=== PATIENT | female | born 1995 | race Caucasian/White ===

== ENCOUNTER 2017-11-29 05:57 | Inpatient (IN) ==
[2017-11-29] MEDS ORDERED: Metoclopramide 10 MG/2 ML VIAL IVP PRN (05:59)
[2017-11-29] MEDS ORDERED: *HR* Nalbuphine 10 MG/ML AMPUL IVP PRN (05:59)
[2017-11-29] MEDS ORDERED: Famotidine 20 MG/2 ML VIAL IVP PRN (05:59)
[2017-11-29] MEDS ORDERED: Ondansetron 4 MG/2 ML VIAL IVP PRN ×2 (05:59→10:59)
[2017-11-29] MEDS ORDERED: Naloxone 0.4 MG/ML INJ IVP PRN ×2 (05:59→10:59)
[2017-11-29] MEDS ORDERED: Oxytocin 20 units/ LR 1000 mL 20 UNIT/1,000 ML BAG IVC SCH ×2 (06:00→15:22)
[2017-11-29] MEDS: Ringers Solution, Lactated 1,000 ML IVC SCH ×2 (06:25→15:23)
[2017-11-29] MEDS ORDERED: Vancomycin 1,000 MG in D5% in Water 250 ML IVPB SCH (06:30)
[2017-11-29 06:38] LABS: Basophils % 0.2 %; Eosinophils # 0.1 K/mcL (0.0-0.6); Eosinophils % 0.8 %; Hematocrit 39.8 % (35.3-44.9); Hemoglobin 13.9 g/dL (11.5-15.4); Immature Granulocytes % 0.5 % (0-4); Lymphocytes # 2.5 K/mcL (0.6-4.6); Lymphocytes % 24.2 %; Mean Corpuscular HGB Conc 34.9 g/dL (31.6-35.5); Mean Corpuscular Hemoglobin 30.5 pg (28.0-33.3); Mean Corpuscular Volume 87.5 fL (83.0-100.0); Mean Platelet Volume 10.9 fL (9.4-12.4); Monocytes # 0.6 K/mcL (0.0-1.3); Monocytes % 5.7 %; Neutrophils # 7.1 K/mcL (1.6-8.9); Platelet Count 170 K/mcL (140-400); Red Blood Count 4.55 M/mcL (3.82-4.97); Red Cell Distribution Width 13.1 % (11.5-14.5); Segmented Neutrophils % 68.6 %
[2017-11-29 06:59] LABS: Amphetamine Screen,Urine Negative ng/mL (Cutoff=1000); Barbiturate Screen,Urine Negative ng/mL (Cutoff=200); Benzodiazepines Screen,Urine Negative ng/mL (Cutoff=200); Cannabinoid Screen,Urine Negative ng/mL (Cutoff = 50); Cocaine Screen,Urine Negative ng/mL (Cutoff= 300); Opiate Screen,Urine Negative ng/mL (Cutoff=300); Phencyclidine Screen,Urine Negative ng/mL (Cutoff=25)
--- NOTE | 2017-11-29 07:31 | OB/GYN History & Physical ---
Date of Encounter: 11/29/17 Time of Encounter: 07:15 Assessment and Plan (1) Post-term , 40-42 weeks of gestation Current visit: Yes Status: Acute Admit for IOL Routine labor management. GBS positive- Vancomycin started Pitocin started, dilated 3-4cm Hx of HSV, on valtrex, patient denies lesions or tingling. Anticipate vaginal delivery. History of Present Illness Chief complaint: Induction of Labor HPI: Ms. Grayson is a 22 year old female at 40 weeks 5 days, that presents to labor and delivery for IOL. She states positive movement. Admits intermittent contractions for the past few weeks, denies leaking of fluid. History of HSV, currently on Valtrex, denies any lesions or burning/tingling. Labs: Blood type A- GBS positive Rubella antibody positive Varicella antibody positive Hep B nonreactive HIV nonreactive Treponema negative Past Med Surg Social Fam HX - Past Medical History Attestation: Yes The following information was validated with the patient. Source: nursing notes reviewed Medical history: other (HSV) Psychiatric history: no psych history - Social History Smoking Status: Never smoker Smokeless Tobacco Status: No Alcohol use: none Drug use: none - Family History Mother Hx Family Cardiac Disorders: Yes (HTN) Hx Family Endocrine Disorder: Yes (DM) Obstetrical History - Pregnancies : 2 Para: 1 Term: 1 : 0 Ab's: 0 Livin Medications and Allergies Vit/Iron Fumarate/FA [ Tablet] 1 tab PO DAILY 11/29/17 [History ] valACYclovir [Valtrex] 1,000 mg PO DAILY 11/29/17 [History] 3 Allergy/AdvReac Type Severity Reaction Status Date / Time Penicillins Allergy Hives Verified 11/29/17 05:59 Review of System OB All systems PM: reviewed and no additional remarkable complaints except as stated Exam - Constitutional Constitutional: well developed, well nourished, no acute distress - HEENT HEENT: Normocephaly, Mucus Membranes Moist - Neck Neck exam: full ROM, normal inspection - Lungs Respiratory exam: CTAB - Cardiovascular Cardiovascular exam: RRR, +S1, +S2 - Abdomen Abdomen: Present: bowel sounds normal, gravid, non tender - Extremities Extremities exam: normal inspection Results Result Diagrams: 11/29/17 06:32 All other labs normal. - VTE Reasons for not Prescribing Prophylaxis: Treatment not Indicated - Low risk for VTE
--- NOTE | 2017-11-29 08:30 | Anesthesia Evaluation PreOp ---
Date of Encounter: 11/29/17 Time of Encounter: 08:20 - Past History Planned Operation: ODALYS Cardiac History: Denies any Significant Hx Pulmonary History: Denies Any Significant HX TELEVISION NEWSCAST DIRECTOR History: Denies Any Significant HX Other Medical History: Other (HSV, on valtrex) Anesthesia History: No Prior Anesthetic Complications, Past Anesthesia (T&A, previous epidural) : Yes Alcohol Use: none Drug use: none Medications and Allergies Vit/Iron Fumarate/FA [ Tablet] 1 tab PO DAILY 11/29/17 [History ] valACYclovir [Valtrex] 1,000 mg PO DAILY 11/29/17 [History] 3 Allergy/AdvReac Type Severity Reaction Status Date / Time Penicillins Allergy Hives Verified 11/29/17 05:59 - Meds/Allergy Pre-op Review Medications Reviewed: Yes Allergies Reviewed: Yes Beta Blockers on Current Med List: No Anesthesia Results - Labs 11/29/17 06:32 Anesthesia Exam BP 132/83 P 88 R 16 T 98.4 Height: 5'8" Weight: 96.9kg NPO (# of Hours): 4 Pain Scale: 3 Pain Scale Used: Numeric (1 - 10) - HEENT Pupil (Motor): Pupils equal Mallampati: II Teeth: Normal Oral Opening: Greater than 3 - TELEVISION NEWSCAST DIRECTOR LOC: Oriented TELEVISION NEWSCAST DIRECTOR Motor: Normal RUE, Normal LUE, Normal RLE, Normal LLE, Normal Face TELEVISION NEWSCAST DIRECTOR Sensory: Normal: RUE, LUE, RLE, LLE, Face - Cardiac Rhythm: Regular Murmur: None JVD: No Carotid Bruit: No - Pulmonary Breath Sounds: bilateral Clear Respiratory Effort: Symmetrical Anesthesia Assess/Plan ASA Score: 2 Modified [place] Scale for Level of Consciousness: Cooperative, oriented, and tranquil Anesthetic Plan: Regional Autologous Blood: No Monitoring Plan: Standard Monitors Recovery Plan: Other
--- NOTE | 2017-11-29 10:12 | OB/GYN History & Physical ---
Date of Encounter: 11/29/17 Time of Encounter: 10:10 Assessment and Plan (1) Hx of [place] positive for herpes simplex virus Current visit: Yes Status: Acute Patient on Valtrex prophylaxis since 35 weeks gestation NO outbreaks visualized (2) Post-term , 40-42 weeks of gestation Current visit: Yes Status: Acute Scheduled IOL Pitocin per protocol may have Nubain or Epidural if desiresk Dr. Monsivais aware (3) Group B Streptococcus carrier state affecting Current visit: Yes Status: Acute Vancomycin per protocol for GBS due to PCN allergy. History of Present Illness Chief complaint: Schedule IOL at 40w5d HPI: Ms. Grayson is a 22 year old female Past Med Surg Social Fam HX - Past Medical History Source: patient Medical history: other (HSV) Psychiatric history: no psych history - Past Surgical History Surgical History: no surgical history - Social History Smoking Status: Never smoker Smokeless Tobacco Status: No Alcohol use: none Drug use: none Occupational status: employed Current living situation: Home - Independent Activity Level: Independent ambulation Recent Out of Country Travel Within the Last 8 Weeks: No Exposure or Possible Exposure to Illness During Travel: No - Family History Mother Hx Family Cardiac Disorders: Yes (HTN) Hx Family Endocrine Disorder: Yes (DM) Obstetrical History - Pregnancies : 2 Para: 1 Term: 1 : 0 Ab's: 0 Livin Medications and Allergies Vit/Iron Fumarate/FA [ Tablet] 1 tab PO DAILY 11/29/17 [History ] valACYclovir [Valtrex] 1,000 mg PO DAILY 11/29/17 [History] 3 Allergy/AdvReac Type Severity Reaction Status Date / Time Penicillins Allergy Hives Verified 11/29/17 05:59 Review of System OB - Constitutional Constitutional ROS IM: no chills, no fever(s), no headache(s) - Cardiovascular Cardiovascular: no chest pain, no palpitations, no syncope - Respiratory Respiratory: no cough - Gastrointestinal Gastrointestinal: no abdominal pain, no constipation, no diarrhea, no heartburn , no nausea, no vomiting - Genitourinary Genitourinary: no abnormal vaginal bleeding, no dysuria, no flank pain, no urinary frequency, no urinary urgency, no vaginal discharge, no vaginal odor, no vaginal pruritis Exam - Constitutional Constitutional: well developed, well nourished, no acute distress, average body habitus - HEENT HEENT: Normocephaly, Mucus Membranes Moist - Neck Neck exam: full ROM, supple - Lungs Respiratory exam: CTAB - Cardiovascular Cardiovascular exam: RRR, +S1, +S2 - Abdomen Abdomen: Present: bowel sounds normal, gravid, non tender - Extremities Extremities exam: full ROM, normal inspection Deep Tendon Reflex Grade: 2+ Normal - Cervix Dilation: 3 Effacement: 80 Station: -1 - Uterus Uterus exam: Present: normal size, normal contour - Anus/Rectum Anus/Rectum: Present: normal perianal skin - Comments Comments: FHR 135 bpm moderate amount of variability +15x15 accesl no decels noted. Cat 1 tracing. Contractions 3-4 min apart Results Result Diagrams: 11/29/17 06:32 All other labs normal. - VTE Reasons for not Prescribing Prophylaxis: Treatment not Indicated - Low risk for VTE
[2017-11-29] MEDS ORDERED: EPHEDrine 50 MG/ML VIAL IVP PRN (10:59)
[2017-11-29] MEDS ORDERED: *HR* FentaNYL (PF) 100 MCG/2 ML VIAL EP ONE (10:59)
[2017-11-29] MEDS ORDERED: Bupivacaine-MPF 0.25% 10 ML VIAL EP ONE (10:59)
[2017-11-29] MEDS ORDERED: Epidural Premix (fent/bupiv) 110 ML EP SCH (11:00)
[2017-11-29] MEDS ORDERED: Epidural Premix (fent/bupiv) 110 ML EP ONE (11:01)
[2017-11-29] MEDS ORDERED: Bupivacaine-MPF 0.25% 10 ML VIAL ONE (11:02)
[2017-11-29] MEDS ORDERED: *HR* FentaNYL (PF) 100 MCG/2 ML VIAL ONE (11:02)
--- NOTE | 2017-11-29 11:36 | Anesthesia Procedures ---
Date of Encounter: 11/29/17 Time of Encounter: 11:06 Procedures: Anesthesia - Epidural/Spinal Patient ID/Chart reviewed: Yes Patient examined: Yes OB Eval: Gestational age: 40.5 OB Eval: : 2 OB Eval: Hx Para: 1 OB Eval: Dilated at (cm): 5 OB Eval: Contractions: Non-stressed pattern Consent Obtained: Yes Supplemental Oxygen: None/Room Air Site Prep: Aseptic Technique, Sterile prep and drape, Povidone-Iodine 1% Patient position: upright Local Anesthetic: Lidocaine 1% Amount of Local Anesthetic used: 3 Touhy Needle Gauge: 18 Touhy Needle Depth (cm): 6 Catheter Depth at Skin (cm): 14 Test Dose (1.5% Lido + Epi): Volume given (mls): 3 Test Dose Result: Negative Loading Dose: 0.25% Marcaine (mls): 10 Loading Dose: Fentanyl (mcg): 100 Loading Dose Administered: Thru Catheter Infusion Med: 0.125% Bupivacaine w/ 2 mcg/ml Fentanyl Infusion Rate (mls/hr): 15 Interspace Used: L3-L4 Loss of Resistance (CARROL): Yes Blood: No CSF: No Paresthesia: No Procedure: ODALYS placed 1st pass without any immediate noted complication. VSS and FHT stable throughout. Vitals + FHT's: 1106 BP 132/72 P 107 R `8 1130 BP 115/61 P 87 R 16 FHT 140s
--- NOTE | 2017-11-29 12:56 | OB Labor Progress Note ---
Date of Encounter: 11/29/17 Time of Encounter: 12:54 Labor Progress Note - Subjective Subjective: Patient doing well. Patient has epidural in place and macias catheter is draining clear yellow urine. Patient does report feeling pressure. - Cervix Cervix: 9/90/0 - Heart Tones Heart Tones: 130 bpm moderate variability +15x15 accels no decels noted. CAt. 1 tracing. - [place]: 1.5-5 min apart - Interventions Interventions: SVE, AROM moderate amount of clear fluid. Patient tolerated well. - Plan Plan: Continue labor management anticipate
--- NOTE | 2017-11-29 14:02 | OB/GYN Procedure Note ---
Delivery - Delivery Date: 11/29/17 Provider: Caterina Flores Intrapartum events: none Delivery induction: AROM, oxytocin Delivery monitor: external FHT, external uterine Anesthesia: epidural Estimated Blood Loss: 200 - (s) A Delivery Date: 11/29/17 Delivery Time: 13:34 Presentation: vertex Position: MELANIA Route of delivery: Gender: Female Viability: Viable Pounds: 8 Ounces: 15 at 1 minute: 8 at 5 mins: 9 Shoulder Dystocia: not encountered Specimens collected: cord blood Placenta: spontaneous, uterine exploration Cord: nuchal cord (X1), delivered through nuchal - Repair Episiotomy: none Laceration Description: None - Complications Delivery complications: none - Disposition Mom disposition: stable in LDR disposition: stable in LDR - Comments Comments: Called to LDR, patient reports feeling pressure. Patient is complete and +2 station. Patient placed in stirrups and prepped for vaginal delivery. Under maternal effort patient spontaneously delivered a viable female over an intact perineum. A nuchal cord was noted that delivered through. No meconium or shoulder dystocia was noted. was placed on maternal abdomen. Cord was clamped and cut after pulsations ceased. Placenta delivered spontaneously and intact. Pericare provided, all counts correct. Both mother and infant stable in LDR for recovery.
[2017-11-29] MEDS ORDERED: Measles/Mumps/Rubella Vacc 0.5 ML VIAL SQ PRN (15:22)
[2017-11-29] MEDS ORDERED: Rho Immune Globulin 1,500 UNIT SYRINGE IM PRN (15:22)
[2017-11-29] MEDS ORDERED: Acetaminophen 325 MG TABLET PO PRN (15:22)
[2017-11-29] MEDS: Ibuprofen 600 MG TABLET PO PRN (16:54)
[2017-11-30] MEDS: Ibuprofen 600 MG TABLET PO PRN (05:15)
[2017-11-30 07:45] VITALS: BP 118/76
--- NOTE | 2017-11-30 08:59 | Discharge Summary ---
Date of Encounter: 11/30/17 Time of Encounter: 08:54 - Discharge Diagnosis (1) Vaginal delivery Priority: Primary Status: Acute Comments: Doing well. Voiding and ambulating without difficulty, tolerating regular diet well. Lochia light and without clots. Mild abdominal cramping, pain well controlled with Ibuprofen. in crib at bedside. Pumping breasts, states has breast pump at home. Desires to go home today. - Discharge Medications Prescriptions: Ibuprofen [Motrin] 600 mg PO Q6HR PRN #30 tablet PRN Reason: Cramping Docusate [Colace] 100 mg PO BID #20 capsule Home Medications: Acetaminophen [Tylenol] 650 mg PO Q6HR PRN tablet 11/30/17 [Rx] Docusate [Colace] 100 mg PO BID #20 capsule 11/30/17 [Rx] Ibuprofen [Motrin] 600 mg PO Q6HR PRN #30 tablet 11/30/17 [Rx] Vit/FA 1 each PO DAILY tablet 11/30/17 [Rx] Allergies/Adverse Reactions: 3 Allergy/AdvReac Type Severity Reaction Status Date / Time Penicillins Allergy Hives Verified 11/29/17 05:59 Data Procedures and tests throughout hospitalization: Laboratory Tests 11/29/17 11/29/17 11/29/17 06:32 06:32 14:05 WBC 10.4 RBC 4.55 Hgb 13.9 Hct 39.8 MCV 87.5 MCH 30.5 MCHC 34.9 RDW 13.1 Plt Count 170 MPV 10.9 Immature Gran % 0.5 Seg Neutrophils % 68.6 Lymphocytes % 24.2 Monocytes % 5.7 Eosinophils % 0.8 Basophils % 0.2 Neutrophils # 7.1 Lymphocytes # 2.5 Monocytes # 0.6 Eosinophils # 0.1 Basophils # 0.0 Urine Opiates Screen Negative Ur Barbiturates Screen Negative Ur Phencyclidine Scrn Negative Ur Amphetamines Screen Negative U Benzodiazepines Scrn Negative Urine Cocaine Screen Negative U Marijuana (THC) Screen Negative Screen NEGATIVE Baby's Blood Type A RH POSITIVE Mother's Blood Type A RH NEGATIVE Rhogam Indicated YES Rhogam Req for Mother 1 Labs on day of discharge: Labs from last 24 hours 11/29/17 14:05 Screen NEGATIVE Baby's Blood Type A RH POSITIVE Mother's Blood Type A RH NEGATIVE Rhogam Indicated YES Rhogam Req for Mother 1 Date of admission: 11/29/17 05:57 Primary care physician: Bjorn Lopez MD Consults: 11/29/17 15:22 Consult to Art Dealer [CONS] Routine Comment: Vaginal delivery, consult needed Discharging clinician: Aury Rivas Anticipated date of discharge: 11/30/17 - Patient Status Disposition: Home, Self-Care Condition: Good Functional capacity at discharge: independent ambulation Overall status at discharge: patient is progressing back to baseline - Discharge Instructions Follow Up With: Bjorn Lopez MD [Primary Care Provider] - - Diet and Activity Activity: resume usual activities as tolerated Diet: advance to your usual diet Hospital Course Reason for admission: induction of labor, IUP at term Delivery: Episiotomy: none Laceration: none Other procedures: none complications: none Discharge diagnosis: IUP at term delivered [place] baby: female Hospital course: Unremarkable Time spent discussing smoking cessation with patient: 3 to 10 minutes Time Attestation: Total time spent providing and/or coordinating discharge services: Time Spent: Less than 30 minutes Exam - Constitutional Vitals: Temp Pulse Resp BP Pulse Ox 98.1 F 82 16 118/76 99 11/30/17 07:43 11/30/17 07:43 11/30/17 07:43 11/30/17 07:43 11/30/17 07:43 General appearance IM: cooperative, A&O X 3, no acute distress, answers questions appropriately - Respiratory Respiratory exam: Present: CTAB - Cardiovascular Cardiovascular exam IM: Present: RRR - GI/Abdominal GI/Abdominal exam IM: normal bowel sounds - Rectal Rectal exam: deferred - Uterine Tone: Firm Uterus Position: At Umbilicus, Midline - Extremities Exam Extremities exam IM: Present: full ROM, normal inspection - Neurological Exam Neurological exam: normal gait
[2017-11-30] MEDS ORDERED: Prenatal Vit/FA 1 EACH TABLET PO SCH (09:00)
== END 2017-11-30 14:30 | disposition home or self-care (01) | DRG 774 ==
LOC: 1NENULAB 05:57 → 1NENUOBS 15:17
PROVIDERS: ADMIT Obstetrics & Gynecology; ATTEND Advanced Practice Midwife